=== PATIENT | female | born 1995 | race Caucasian/White ===

== ENCOUNTER 2018-08-02 17:48 | Outpatient (CLI) | payer MEDICAID ==
[2018-08-02 19:02] LABS: ADD MAN DIFF? NO
[2018-08-02 19:06] LABS: BASOPHILS % 0.4 % (0.0-2.0); EOSINOPHILS # 0.1 10^3/ul (0.0-0.5); EOSINOPHILS % 0.6 % (0.0-7.0); HEMATOCRIT 32.5 % (37.0-47.0); HEMOGLOBIN 10.7 g/dl (12.0-16.0); LYMPHOCYTES # 1.6 10^3/ul (0.8-2.9); LYMPHOCYTES % 14.4 % (15.0-51.0); MEAN CORPUSCULAR HEMOGLOBIN 26.5 pg (29.0-33.0); MEAN CORPUSCULAR HGB CONC 32.9 g/dl (32.0-37.0); MEAN CORPUSCULAR VOLUME 80.4 fl (82.0-101.0); MEAN PLATELET VOLUME 11.2 fl (7.4-10.4); MONOCYTE # 0.6 10^3/ul (0.3-0.9); MONOCYTES % 5.4 % (0.0-11.0); NEUTROPHIL # 8.4 10^3/ul (1.6-7.5); NEUTROPHILS % 77.8 % (39.0-77.0); PLATELET COUNT 204 10^3/UL (140-415); RED BLOOD COUNT 4.04 10^6/ul (4.20-5.40); RED CELL DISTRIBUTION WIDTH 14.1 % (11.5-14.5)
[2018-08-02 19:06] LABS: WHITE BLOOD COUNT 10.8 10^3/ul (4.8-10.8)
[2018-08-02 19:40] LABS: ADD UMIC NO; UR ASCORBIC ACID NEGATIVE (NEGATIVE); UR BACTERIA FEW /HPF (NONE SEEN); UR BILIRUBIN (Dip) NEGATIVE (NEGATIVE); UR BLOOD (Dip) NEGATIVE (NEGATIVE); UR CLARITY SLIGHTLY CLOUDY (CLEAR); UR COLOR YELLOW (YELLOW); UR GLUCOSE (Dip) NEGATIVE (NEGATIVE); UR KETONES (Dip) NEGATIVE (NEGATIVE); UR LEUKOCYTE ESTERASE (Dip) NEGATIVE Leu/ul (NEGATIVE); UR NITRITE (Dip) NEGATIVE (NEGATIVE); UR RBC 0 /HPF (0-5); UR SPECIFIC GRAVITY (Dip) 1.009 (1.003-1.030); UR SQUAMOUS EPITHELIAL CELL MODERATE /HPF (FEW); UR TOTAL PROTEIN (Dip) NEGATIVE (NEGATIVE); UR UROBILINOGEN (Dip) NEGATIVE (NEGATIVE); UR WBC 2 /HPF (0-5)
[2018-08-02 19:45] LABS: GLUCOSE 80 mg/dl (70-220)
[2018-08-02] MEDS: LACTATED RINGER'S 1,000 ML IV ×2 (20:23→21:08)
[2018-08-02] MEDS ORDERED: TERBUTALINE 1 ML (21:03)
[2018-08-02] MEDS: TERBUTALINE 1 MG/ML INJ SC (21:08)
== END 2018-08-02 22:30 | disposition home or self-care (01) ==
LOC: OBT 17:48 → L-D 17:50 → OBT 22:30
DX: O26.893 Other specified pregnancy related conditions, third trimester (principal); O24.419 Gestational diabetes mellitus in pregnancy, unspecified control; M54.9 Dorsalgia, unspecified; Z3A.30 30 weeks gestation of pregnancy
CPT/HCPCS: 36415; 76817; 76818; 81001; 81003; 82947; 85025; 87086; 96360; 96361; 96372

== ENCOUNTER 2018-08-24 12:37 | Inpatient (IN) | payer MEDICAID ==
[2018-08-24 13:27] LABS: ADD UMIC NO; UR ASCORBIC ACID 20 mg/dL (NEGATIVE); UR BILIRUBIN (Dip) NEGATIVE (NEGATIVE); UR BLOOD (Dip) NEGATIVE (NEGATIVE); UR CLARITY SLIGHTLY CLOUDY (CLEAR); UR COLOR YELLOW (YELLOW); UR GLUCOSE (Dip) 2+ mg/dL (NEGATIVE); UR KETONES (Dip) 1+ mg/dL (NEGATIVE); UR LEUKOCYTE ESTERASE (Dip) NEGATIVE Leu/ul (NEGATIVE); UR MUCUS FEW /HPF (NONE SEEN); UR NITRITE (Dip) NEGATIVE (NEGATIVE); UR RBC 1 /HPF (0-5); UR SPECIFIC GRAVITY (Dip) 1.018 (1.003-1.030); UR SQUAMOUS EPITHELIAL CELL FEW /HPF (FEW); UR TOTAL PROTEIN (Dip) NEGATIVE (NEGATIVE); UR UROBILINOGEN (Dip) NEGATIVE (NEGATIVE); UR WBC 2 /HPF (0-5)
[2018-08-24] MEDS ORDERED: TERBUTALINE 1 ML (13:39)
[2018-08-24] MEDS: LACTATED RINGER'S 1,000 ML IV* ×2 (13:43→17:00)
[2018-08-24] MEDS: TERBUTALINE 1 MG/ML INJ SC (13:44)
[2018-08-24 14:54] LABS: ADD MAN DIFF? NO
[2018-08-24 14:56] LABS: WHITE BLOOD COUNT 11.3 10^3/ul (4.8-10.8)
[2018-08-24 14:56] LABS: BASOPHILS % 0.3 % (0.0-2.0); EOSINOPHILS # 0.1 10^3/ul (0.0-0.5); EOSINOPHILS % 0.4 % (0.0-7.0); HEMATOCRIT 35.8 % (37.0-47.0); HEMOGLOBIN 11.5 g/dl (12.0-16.0); LYMPHOCYTES # 2.7 10^3/ul (0.8-2.9); LYMPHOCYTES % 23.6 % (15.0-51.0); MEAN CORPUSCULAR HEMOGLOBIN 25.9 pg (29.0-33.0); MEAN CORPUSCULAR HGB CONC 32.1 g/dl (32.0-37.0); MEAN CORPUSCULAR VOLUME 80.6 fl (82.0-101.0); MEAN PLATELET VOLUME 12.1 fl (7.4-10.4); MONOCYTE # 0.6 10^3/ul (0.3-0.9); NEUTROPHIL # 7.9 10^3/ul (1.6-7.5); NEUTROPHILS % 69.9 % (39.0-77.0); PLATELET COUNT 212 10^3/UL (140-415); RED BLOOD COUNT 4.44 10^6/ul (4.20-5.40); RED CELL DISTRIBUTION WIDTH 14.4 % (11.5-14.5)
[2018-08-24] MEDS: MAGNESIUM SULFATE 4 GM/100 ML 100 ML IV (15:54)
[2018-08-24 16:10] LABS: AMPHETAMINE/METHAMPHETAMINE Negative (NEGATIVE); BARBITURATES Negative (NEGATIVE); BENZODIAZEPINES Negative (NEGATIVE); CANNABINOIDS Negative (NEGATIVE); COCAINE Negative (NEGATIVE); OPIATES Negative (NEGATIVE)
[2018-08-24] MEDS: BETAMET NA PHOS/AC(6 MG/ML) 2 ML INJ SYG IM (16:15)
[2018-08-24] MEDS: MAGNESIUM SULFATE 20 GM/500 ML 500 ML IV (16:27)
[2018-08-24 16:39] LABS: ALANINE AMINOTRANSFERASE 14 IU/L (13-69); ALBUMIN 3.2 g/dl (3.3-4.9); ALBUMIN/GLOBULIN RATIO 1.03; ALKALINE PHOSPHATASE 141 IU/L (42-121); ANION GAP 10 (5-13); ASPARTATE AMINO TRANSFERASE 20 IU/L (15-46); BILIRUBIN,INDIRECT 0.2 mg/dl (0-1.1); BILIRUBIN,TOTAL 0.2 mg/dl (0.2-1.3); BLOOD UREA NITROGEN 4 mg/dl (7-20); CALCIUM 9.1 mg/dl (8.4-10.2); CARBON DIOXIDE 20 mmol/L (21-31); CHLORIDE 108 mmol/L (97-110); CREATININE 0.42 mg/dl (0.44-1.00); Estimated GFR > 60 mL/min (>60); GLUCOSE 104 mg/dl (70-220); POTASSIUM 3.5 mmol/L (3.5-5.1); SODIUM 138 mmol/L (135-144); TOTAL PROTEIN 6.3 g/dl (6.1-8.1)
[2018-08-24] MEDS ORDERED: GLUCOSE GEL 15 GRAM TUBE PO ×2 (17:00)
[2018-08-24] MEDS ORDERED: GLUCAGON 1 MG INJ IM (17:00)
[2018-08-24] MEDS ORDERED: GLUCOSE GEL 15 GRAM TUBE BUCCAL (17:00)
[2018-08-24] MEDS ORDERED: DEXTROSE 50% 50 ML SYRINGE IV ×2 (17:00)
[2018-08-24] MEDS: ACCU-CHEK XX (18:00)
[2018-08-24] MEDS: metFORMIN (XR) 500 MG TAB PO (18:03)
[2018-08-24] MEDS: INSULIN ASPART [NOVOLOG] 3 ML PEN SC (21:37)
[2018-08-24] MEDS: ACETAMINOPHEN 325 MG TAB PO (23:15)
[2018-08-25] MEDS: BISACODYL 10 MG SUPP PR (00:10)
[2018-08-25 01:17] LABS: MAGNESIUM 4.2 mg/dl (1.7-2.5)
[2018-08-25] MEDS: MAGNESIUM SULFATE 20 GM/500 ML 500 ML IV ×3 (02:06→23:08)
[2018-08-25] MEDS: LACTATED RINGER'S 1,000 ML IV* ×2 (05:27→18:22)
[2018-08-25 07:00] LABS: MAGNESIUM 4.5 mg/dl (1.7-2.5)
[2018-08-25] MEDS: INSULIN ASPART [NOVOLOG] 3 ML PEN SC ×3 (07:35→17:56)
[2018-08-25] MEDS: ACCU-CHEK XX ×4 (08:00→19:35)
[2018-08-25] MEDS: metFORMIN (XR) 500 MG TAB PO ×3 (08:01→17:57)
[2018-08-25 13:25] LABS: MAGNESIUM 4.5 mg/dl (1.7-2.5)
[2018-08-25] MEDS: BETAMET NA PHOS/AC(6 MG/ML) 2 ML INJ SYG IM (16:07)
[2018-08-25 18:33] LABS: MAGNESIUM 4.3 mg/dl (1.7-2.5)
[2018-08-25] MEDS ORDERED: DOCUSATE SODIUM 100 MG CAP PO (23:00)
[2018-08-26 00:40] LABS: MAGNESIUM 4.2 mg/dl (1.7-2.5)
[2018-08-26] MEDS: LACTATED RINGER'S 1,000 ML IV* (06:56)
[2018-08-26 07:19] LABS: MAGNESIUM 4.5 mg/dl (1.7-2.5)
[2018-08-26] MEDS: INSULIN ASPART [NOVOLOG] 3 ML PEN SC ×2 (08:05→11:50)
[2018-08-26] MEDS: ACCU-CHEK XX ×3 (08:42→15:01)
[2018-08-26] MEDS: metFORMIN (XR) 500 MG TAB PO (08:44)
[2018-08-26] MEDS: MAGNESIUM SULFATE 20 GM/500 ML 500 ML IV (11:54)
[2018-08-26] MEDS: NIFEdipine 10 MG CAP PO (14:53)
== END 2018-08-26 18:40 | disposition home or self-care (01) | DRG 833 ==
LOC: OBT 12:37 → PP1 08-25 22:57 → L-D 12:39 → OBT 15:27 → PP1 15:27 → L-D 16:30
DX: O47.03 False labor before 37 completed weeks of gestation, third trimester (principal); O24.419 Gestational diabetes mellitus in pregnancy, unspecified control; Z3A.33 33 weeks gestation of pregnancy
CPT/HCPCS: 36415; 76817; 76818; 80053; 80307; 81001; 81003; 82962; 83735; 85025; 87086; 96360; 96372

== ENCOUNTER 2018-09-23 08:18 | Inpatient (IN) | payer MEDICAID ==
[2018-09-23] MEDS ORDERED: MISOPROSTOL 200 MCG TAB PR ×2 (08:30→10:30)
[2018-09-23] MEDS ORDERED: AMPICILLIN 2 GM/NS (PMX) 100 ML IV (08:30)
[2018-09-23] MEDS ORDERED: METHYLERGONOVINE 0.2 MG INJ IM ×2 (08:30→10:30)
[2018-09-23] MEDS ORDERED: LIDOCAINE 1% (MPF) 30 ML INJ INJ (08:30)
[2018-09-23] MEDS ORDERED: BUTORPHANOL 2 MG INJ IV (08:30)
[2018-09-23] MEDS ORDERED: CARBOPROST 250 MCG INJ IM ×2 (08:30→10:30)
[2018-09-23] MEDS ORDERED: OXYTOCIN 30 UNITS/LR 500 ML IV ×2 (08:30→10:30)
[2018-09-23] MEDS ORDERED: LIDOCAINE 1% (MPF) 30 ML INJ (08:36)
[2018-09-23 08:41] LABS: ADD MAN DIFF? NO
[2018-09-23 08:44] LABS: WHITE BLOOD COUNT 10.3 10^3/ul (4.8-10.8)
[2018-09-23 08:44] LABS: BASOPHILS % 0.4 % (0.0-2.0); EOSINOPHILS % 0.3 % (0.0-7.0); HEMATOCRIT 36.8 % (37.0-47.0); HEMOGLOBIN 11.9 g/dl (12.0-16.0); LYMPHOCYTES # 2.5 10^3/ul (0.8-2.9); LYMPHOCYTES % 24.6 % (15.0-51.0); MEAN CORPUSCULAR HEMOGLOBIN 25.5 pg (29.0-33.0); MEAN CORPUSCULAR HGB CONC 32.3 g/dl (32.0-37.0); MEAN CORPUSCULAR VOLUME 78.8 fl (82.0-101.0); MONOCYTE # 0.5 10^3/ul (0.3-0.9); MONOCYTES % 4.5 % (0.0-11.0); NEUTROPHIL # 7.2 10^3/ul (1.6-7.5); NEUTROPHILS % 69.4 % (39.0-77.0); PLATELET COUNT 218 10^3/UL (140-415); RED BLOOD COUNT 4.67 10^6/ul (4.20-5.40); RED CELL DISTRIBUTION WIDTH 14.5 % (11.5-14.5)
[2018-09-23] MEDS: LACTATED RINGER'S 1,000 ML IV (08:48)
[2018-09-23 09:04] LABS: INR 0.89; PROTIME 12.1 Sec (11.9-14.9); PT RATIO 0.9
[2018-09-23 09:05] LABS: PARTIAL THROMBOPLASTIN TIME 27.7 Sec (23.0-35.0)
[2018-09-23 09:31] LABS: HEPATITIS B SURFACE ANTIGEN NEGATIVE (NEGATIVE)
[2018-09-23] MEDS: OXYTOCIN 30 UNITS/LR 500 ML IV ×4 (10:12→10:54)
[2018-09-23] MEDS: LACTATED RINGER'S 1,000 ML IV* ×2 (10:12→18:12)
[2018-09-23] MEDS: IBUPROFEN 600 MG TAB PO ×2 (10:21→17:40)
[2018-09-23] MEDS ORDERED: ONDANSETRON 4 MG INJ IV (10:30)
[2018-09-23] MEDS ORDERED: MAGNESIUM HYDROXIDE 30ML CUP PO (10:30)
[2018-09-23] MEDS ORDERED: ACETAMINOPHEN 325 MG TAB PO ×2 (10:30)
[2018-09-23] MEDS ORDERED: DIBUCAINE 1% 30 GM OINT TOP (10:30)
[2018-09-23] MEDS: BENZOCAINE 20% 56 ML SPRAY TOP (12:12)
[2018-09-23] MEDS: WITCH HAZEL/GLYCERIN PAD PR (12:12)
[2018-09-23] MEDS: LANOLIN HPA 1 PKT TOP (12:12)
[2018-09-23] MEDS ORDERED: AMPICILLIN 1 GM/NS (PMX) 50 ML IV (12:30)
[2018-09-23 16:22] LABS: RAPID PLASMA REAGIN NONREACTIVE (NR)
[2018-09-24] MEDS: IBUPROFEN 600 MG TAB PO ×4 (00:04→17:33)
[2018-09-24 07:41] LABS: ADD MAN DIFF? NO
[2018-09-24 07:49] LABS: BASOPHIL # 0.1 10^3/ul (0.0-0.1); BASOPHILS % 0.5 % (0.0-2.0); EOSINOPHILS # 0.1 10^3/ul (0.0-0.5); EOSINOPHILS % 0.5 % (0.0-7.0); HEMATOCRIT 28.8 % (37.0-47.0); HEMOGLOBIN 9.1 g/dl (12.0-16.0); LYMPHOCYTES # 2.7 10^3/ul (0.8-2.9); LYMPHOCYTES % 26.6 % (15.0-51.0); MEAN CORPUSCULAR HEMOGLOBIN 25.3 pg (29.0-33.0); MEAN CORPUSCULAR HGB CONC 31.6 g/dl (32.0-37.0); MEAN PLATELET VOLUME 11.8 fl (7.4-10.4); MONOCYTE # 0.5 10^3/ul (0.3-0.9); NEUTROPHIL # 6.8 10^3/ul (1.6-7.5); NEUTROPHILS % 66.5 % (39.0-77.0); PLATELET COUNT 191 10^3/UL (140-415); RED CELL DISTRIBUTION WIDTH 14.6 % (11.5-14.5)
[2018-09-24 07:49] LABS: WHITE BLOOD COUNT 10.3 10^3/ul (4.8-10.8)
[2018-09-24] MEDS: SENNA/DOCUSATE NA (8.6MG/50MG) TAB PO (08:46)
[2018-09-24] MEDS: LANOLIN HPA 1 PKT TOP (11:34)
[2018-09-25] MEDS: IBUPROFEN 600 MG TAB PO ×2 (00:20→05:52)
== END 2018-09-25 14:10 | disposition home or self-care (01) | DRG 807 ==
LOC: OBT 08:18 → L-D 08:19 → PP1 11:16
PROVIDERS: Obstetrics & Gynecology
PROC: 10E0XZZ Delivery of Products of Conception, External Approach (ICD-10-PCS; principal; 2018-09-23)
DX: O24.425 Gestational diabetes mellitus in childbirth, controlled by oral hypoglycemic drugs (principal); Z37.0 Single live birth; Z3A.38 38 weeks gestation of pregnancy; Z88.0 Allergy status to penicillin; Z79.84 Long term (current) use of oral hypoglycemic drugs
CPT/HCPCS: 76815; 85025; 85610; 85730; 86592; 86850; 86900; 86901; 87340